=== PATIENT | female | born 2000 | race African-American/Black ===

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

== ENCOUNTER 2018-01-06 11:42 | Emergency (ER) | payer OTHER ==
[~2018-01-06 11:42] MED LIST changes: -CEPH-460 PO; +FAMO1TAB37 PO; -KETO2CRE TOPICAL; +TYLE325T PO
--- NOTE | 2018-01-06 12:17 | PD ---
HPI Chief Complaint sent in from Ob doctor's office due to cervical dilation change from 2 wks ago, from 1 to 3cm dilated Travel History International Travel<30 Days: No Contact w/Intl Traveler<30Days: No History of Present Illness HPI Patient is a 17-year-old female at 34/4 weeks gestation presenting from her OB doctor's office due to cervical dilation. Patient reports that she was checked by her OB practitioner I carefully woman and was told that she was dilated 3 cm compared to 2 weeks ago when she was 1 cm dilated. Patient states that she does not know reason patient did a cervical check. Denies loss of fluid, vaginal bleeding, or contractions. Endorses movement. Denies chest pain, shortness of breath, nausea, vomiting, abdominal pain, headaches or vision issues. Para: 0 : 1 History Past Medical History Medical History: Denies Significant Hx Obstetric History Obstetric History No complications this so far Past Surgical History Surgical History: No Previous Surgery Family History Family History: Negative Social History Alcohol Use: No Tobacco Use: No Substance Abuse: Yes (Marijuana, 1 blunt per week.) Allergies-Medications (Allergen,Severity, Reaction): Coded Allergies: No Known Allergies (Verified Adverse Reaction, Unknown, 12/27/17) Home Meds Active Scripts Acetaminophen (Tylenol) 325 Mg Tab, 650 MG PO Q6H Y for PAIN SCALE 1 TO 4, #20 TAB 0 Refills Prov:Charu Hopkins DO 12/27/17 Famotidine (Pepcid) 20 Mg Tab, 20 MG PO BID for 7 Days, #14 TAB 0 Refills Prov:Charu Hopkins DO 12/27/17 Review of Systems Except as stated in HPI: all other systems reviewed are Neg (per HPI) Physical Exam Narrative GENERAL: Well-nourished, well-developed patient. SKIN: Warm and dry. HEAD: Normocephalic and atraumatic. EYES: No scleral icterus. No injection or drainage. ENT: No nasal drainage noted. Mucous membranes pink. Airway patent. NECK: Supple, trachea midline. No JVD. CARDIOVASCULAR: Regular rate and rhythm without murmurs, gallops, or rubs. RESPIRATORY: Breath sounds equal bilaterally. No accessory muscle use. ABDOMEN/GI: Abdomen soft, non-tender, bowel sounds present, no rebound, no guarding Gravid to 34 weeks size GENITOURINARY: External Genitalia: intact and normal in appearance Cervix: posterior Dilatation:1 Effacement: 0 Station: -2 Membranes: intact Uterine Contractions: none FHT's: Category: 1 Baseline: 140 Reactive: yes Variability: moderate Decels: none EXTREMITIES: No cyanosis or edema. BACK: Nontender without obvious deformity. No CVA tenderness. NEUROLOGICAL: Awake and alert. Motor and sensory grossly within normal limits. Five out of 5 muscle strength in all muscle groups. Normal speech. Data Data Vital Signs Reviewed: Yes [facility] Medical Record Reviewed: Yes Plan Patient is a 17-year-old female at 34/4 weeks gestation presenting from her OB doctor's office due to cervical dilation. IUP at 34/4 1. category 1, NST reassuring 2. VS WNL 3. no contraction on monitor, pt not found to be in labor. 4. cervical check: 1/thick/-2/ posterior. 5. Patient will be discharge home, advised to f/u with OB doctor as schedule for care MARYW Dr. Stokes Diagnosis Diagnosis: Primary Impression: 34 weeks gestation of Disposition: DISCHARGE HOME Condition: Stable Frank Shaffer MD, R1 January 06, 2018 12:17
== END 2018-01-06 14:04 | disposition home or self-care (01) ==
LOC: HOBED 11:42
DX: O34.33 Maternal care for cervical incompetence, third trimester (principal); Z3A.34 34 weeks gestation of pregnancy
CPT/HCPCS: 59025

== ENCOUNTER 2018-01-28 05:06 | Inpatient (IN) | payer OTHER ==
[~2018-01-28] VITALS: Ht 177.8 cm; Wt 83.9 kg
[2018-01-28] VITALS (24 sets, daily range): BP systolic 129–152; BP diastolic 66–83; PULSE 67–119; RESP 16–20; TEMP 98.4–98.7; O2SAT 100
[2018-01-28] MEDS ORDERED: LACTATED RINGER'S 1000 ML INJ 1,000 ML IV SCH (05:57)
[2018-01-28] MEDS ORDERED: LACTATED RINGER'S 1000 ML INJ 1,000 ML IV PRN (05:57)
[2018-01-28] MEDS ORDERED: OXYTOCIN 30 UNITS-500ML PREMIX 500 ML IV ONE (06:00)
[2018-01-28] MEDS ORDERED: MINERAL OIL 10 ML VIAL TOPICAL PRN (06:00)
[2018-01-28] MEDS ORDERED: LIDOCAINE HCL 1% 50 ML VIAL INFIL PRN (06:00)
[2018-01-28] MEDS ORDERED: LIDOCAINE HCL 1% 50 ML VIAL I-DERMAL PRN (06:00)
[2018-01-28] MEDS ORDERED: CITRIC ACID-SODIUM CITRATE LIQ 30 ML UDC PO SCH (06:00)
[2018-01-28] MEDS ORDERED: SODIUM CHLORID 0.9% 500 ML INJ 500 ML IV PRN (06:00)
--- NOTE | 2018-01-28 06:04 | PD ---
HPI Chief Complaint contractions Date Seen: Jan 28, 2018 Time Seen: 06:03 Travel History International Travel<30 Days: No Contact w/Intl Traveler<30Days: No Known Affected Area: No History of Present Illness HPI Ms Bliss is a 17 YO female at 37/5 weeks (SHANTEL 02/13/18 with LMP 05/09/17) followed by [facility] with no PCP who presents with contractions about 10 minutes apart starting around 2-3AM. There is no VB or LOF. There is +FM. She is GBS negative and labs have been wnl with no gestational HTN or DM reported. When she was seen in clinic yesterday pelvic exam revealed cervical dilation to 4cm. Pt denies visual sxs, GUERRA, fever, N/V/D, constipation, CP, SOB, leg edema or pain. Weeks Gestation: 37 Para: 0 : 1 Last Menstrual Period: May 09, 2017 History Past Medical History Medical History: Denies Significant Hx Obstetric History Obstetric History LMP May 09 2017 OB US without abnormalities 02/13/18 Past Surgical History Surgical History: No Previous Surgery Family History Narrative Family History Mother and grandmother both have diabetes Social History Alcohol Use: No Tobacco Use: No Substance Abuse: Yes ([facility]) Allergies-Medications (Allergen,Severity, Reaction): Coded Allergies: No Known Allergies (Verified Adverse Reaction, Unknown, 12/27/17) Home Meds No Active Prescriptions or Reported Meds Review of Systems General / Constitutional: No: Fever, Chills Eyes: No: Blurred Vision, Visual changes HENT: No: Headaches, Lightheadedness Cardiovascular: No: Chest Pain or Discomfort, Palpitations Respiratory: No: Cough, Short of Breath Gastrointestinal: No: Nausea, Vomiting, Diarrhea, Abdominal Pain, Constipation Genitourinary: Pelvic Pain (contractions), No: Urgency, Frequency, Dysuria, Discharge, Vaginal Bleeding Musculoskeletal: Pain (contractions), No: Edema Skin: No Rash Neurologic: No: Dizziness, Headache Psychiatric: No: Depression Physical Exam T-98.4 / MHR 93-102 / BP 148/86 / RR 20 Narrative GENERAL: Well-nourished, well-developed patient with occasional pain with contractions. SKIN: Warm and dry. No lesions. HEAD: Normocephalic and atraumatic. EYES: No scleral icterus. No injection or drainage. ENT: No nasal drainage noted. Mucous membranes pink. Airway patent. NECK: Supple, trachea midline. No JVD. CARDIOVASCULAR: Tachycardia, regular rhythm without murmurs, gallops, or rubs. RESPIRATORY: Breath sounds equal bilaterally. No accessory muscle use. ABDOMEN/GI: Abdomen soft, non-tender, bowel sounds present, no rebound, no guarding Gravid to 38 weeks size GENITOURINARY: External Genitalia: intact and normal in appearance Cervix: open Dilatation: 5 Effacement: 80 Station: -3 Presentation: vtx Membranes: intact/bulging Uterine Contractions: q3-5minutes FHT's: Category: 1 Baseline: 140 Reactive: yes Variability: moderate Decels: absent EXTREMITIES: No cyanosis or edema. BACK: Nontender without obvious deformity. No CVA tenderness. NEUROLOGICAL: Awake and alert. Motor and sensory grossly within normal limits. Five out of 5 muscle strength in all muscle groups. Normal speech. Data Data Vital Signs Reviewed: Yes Orders Orders Ob (2e) Additional Admit Info (01/28/18 05:49) Admit To Inpatient (01/28/18 ) Code Status (01/28/18 05:57) Vital Signs (Adult) .Per protocol (01/28/18 05:57) Activity Oob Ad Tamara (01/28/18 05:57) Heart (01/28/18 05:57) Amnioinfusion (01/28/18 05:57) Urinary Catheter Management .ONCE (01/28/18 05:57) Diet Npo (01/28/18 Breakfast) Lactated Ringer's 1000 Ml Inj (Lr 1000 M (01/28/18 05:57) Lactated Ringer's 1000 Ml Inj (Lr 1000 M (01/28/18 05:57) Sodium Chlorid 0.9% 500 Ml Inj (Ns 500 M (01/28/18 06:00) Sodium Chlor 0.9% 1000 Ml Inj (Ns 1000 M (01/28/18 06:17) Lidocaine 1% Inj (50 Ml) (Xylocaine 1% I (01/28/18 06:00) Citric Acid-Sodium Citrate Liq (Bicitra (01/28/18 06:00) Fentanyl Inj (Fentanyl Inj) (01/28/18 06:00) Fentanyl Inj (Fentanyl Inj) (01/28/18 06:00) Complete Blood Count With Diff (01/28/18 05:57) Hold Clot (01/28/18 05:57) Abo/Rh Blood Type (01/28/18 05:57) Urinalysis - C+S If Indicated (01/28/18 05:57) Ob/Psych Drug Screen, Urine (01/28/18 05:57) Resp Oxygen Non Rebreathe Mask (01/28/18 ) ^ Epidural / Intrathecal Infus (01/28/18 05:57) Oxytocin 30 Units-500ml Premix (Pitocin (01/28/18 06:00) Lidocaine 1% Inj (50 Ml) (Xylocaine 1% I (01/28/18 06:00) Light Mineral Oil (Muri-Lube Oil) (01/28/18 06:00) Inpatient Certification (01/28/18 ) Specimen To Be Collected PRN (01/28/18 05:57) Specimen To Be Collected PRN (01/28/18 05:57) Group B Strep: Negative Labs Laboratory Tests Test 01/28/18 05:30 MDM Medical Record Reviewed: Yes Narrative Course / MDM 17YO at 37/5 weeks presents in labor with contractions q3-5 minutes. Cervix is 5/80/-3 with a bulging bag. There has been no VB and there is +FM. FHT is Cat 1, BL 140, reactive, moderate, no decels. Admitted for L&D. 1. IUP -Monitor and toco -Epidural at pt request -Consent signed -NPO with sips and chips -Labs: UDS, CBC, UA w/C+S -LR IVF @ 125mls/hr Pt dw Dr Alexander Scripts No Active Prescriptions or Reported Meds Tk Islas MD R1 Jan 28, 2018 06:04
[2018-01-28 06:17] LABS: BACTERIA, URINE RARE /hpf; BILIRUBIN, URINE NEG (NEG); BLOOD, URINE LARGE (NEG); GLUCOSE,URINE NEG (NEG); KETONE, URINE NEG (NEG); MUCUS URINE FEW /lpf (OCC); NITRITE,URINE NEG (NEG); SQUAMOUS EPITHELIAL CELL URINE 4 /hpf (0-5); URINE COLOR Straw (YELLW/STRAW); URINE LEUKOCYTE ESTERASE LARGE (NEG)
[2018-01-28] MEDS ORDERED: SODIUM CHLOR 0.9% 1000 ML INJ 1,000 ML IV PRN (06:17)
--- NOTE | 2018-01-28 06:32 | HHI.HP ---
History & Physical H&P HPI Chief Complaint contractions Date Seen: Jan 28, 2018 Time Seen: 06:03 Travel History International Travel<30 Days: No Contact w/Intl Traveler<30Days: No Known Affected Area: No History of Present Illness HPI Ms Bliss is a 17 YO female at 37/5 weeks (SHANTEL 02/13/18 with LMP 05/09/17) followed by [facility] with no PCP who presents with contractions about 10 minutes apart starting around 2-3AM. There is no VB or LOF. There is +FM. She is GBS negative and labs have been wnl with no gestational HTN or DM reported. When she was seen in clinic yesterday pelvic exam revealed cervical dilation to 4cm. Pt denies visual sxs, GUERRA, fever, N/V/D, constipation, CP, SOB, leg edema or pain. Weeks Gestation: 37 Para: 0 : 1 Last Menstrual Period: May 09, 2017 History (Limited) History Past Medical History Medical History: Denies Significant Hx Obstetric History Obstetric History LMP May 09 2017 OB US without abnormalities 02/13/18 Past Surgical History Surgical History: No Previous Surgery Family History Narrative Family History Mother and grandmother both have diabetes Social History Alcohol Use: No Tobacco Use: No Substance Abuse: Yes ([facility]) Allergies-Medications Allergies-Medications (Allergen,Severity, Reaction): Coded Allergies: No Known Allergies (Verified Adverse Reaction, Unknown, 12/27/17) Home Meds No Active Prescriptions or Reported Meds ROS Review of Systems General / Constitutional: No: Fever, Chills Eyes: No: Blurred Vision, Visual changes HENT: No: Headaches, Lightheadedness Cardiovascular: No: Chest Pain or Discomfort, Palpitations Respiratory: No: Cough, Short of Breath Gastrointestinal: No: Nausea, Vomiting, Diarrhea, Abdominal Pain, Constipation Genitourinary: Pelvic Pain (contractions), No: Urgency, Frequency, Dysuria, Discharge, Vaginal Bleeding Musculoskeletal: Pain (contractions), No: Edema Skin: No Rash Neurologic: No: Dizziness, Headache Psychiatric: No: Depression Physical Exam Physical Exam T-98.4 / MHR 93-102 / BP 148/86 / RR 20 Narrative GENERAL: Well-nourished, well-developed patient with occasional pain with contractions. SKIN: Warm and dry. No lesions. HEAD: Normocephalic and atraumatic. EYES: No scleral icterus. No injection or drainage. ENT: No nasal drainage noted. Mucous membranes pink. Airway patent. NECK: Supple, trachea midline. No JVD. CARDIOVASCULAR: Tachycardia, regular rhythm without murmurs, gallops, or rubs. RESPIRATORY: Breath sounds equal bilaterally. No accessory muscle use. ABDOMEN/GI: Abdomen soft, non-tender, bowel sounds present, no rebound, no guarding Gravid to 38 weeks size GENITOURINARY: External Genitalia: intact and normal in appearance Cervix: open Dilatation: 5 Effacement: 80 Station: -3 Presentation: vtx Membranes: intact/bulging Uterine Contractions: q3-5minutes FHT's: Category: 1 Baseline: 140 Reactive: yes Variability: moderate Decels: absent EXTREMITIES: No cyanosis or edema. BACK: Nontender without obvious deformity. No CVA tenderness. NEUROLOGICAL: Awake and alert. Motor and sensory grossly within normal limits. Five out of 5 muscle strength in all muscle groups. Normal speech. Data Data Data Vital Signs Reviewed: Yes Orders Orders Ob (2e) Additional Admit Info (01/28/18 05:49) Admit To Inpatient (01/28/18 ) Code Status (01/28/18 05:57) Vital Signs (Adult) .Per protocol (01/28/18 05:57) Activity Oob Ad Tamara (01/28/18 05:57) Heart (01/28/18 05:57) Amnioinfusion (01/28/18 05:57) Urinary Catheter Management .ONCE (01/28/18 05:57) Diet Npo (01/28/18 Breakfast) Lactated Ringer's 1000 Ml Inj (Lr 1000 M (01/28/18 05:57) Lactated Ringer's 1000 Ml Inj (Lr 1000 M (01/28/18 05:57) Sodium Chlorid 0.9% 500 Ml Inj (Ns 500 M (01/28/18 06:00) Sodium Chlor 0.9% 1000 Ml Inj (Ns 1000 M (01/28/18 06:17) Lidocaine 1% Inj (50 Ml) (Xylocaine 1% I (01/28/18 06:00) Citric Acid-Sodium Citrate Liq (Bicitra (01/28/18 06:00) Fentanyl Inj (Fentanyl Inj) (01/28/18 06:00) Fentanyl Inj (Fentanyl Inj) (01/28/18 06:00) Complete Blood Count With Diff (01/28/18 05:57) Hold Clot (01/28/18 05:57) Abo/Rh Blood Type (01/28/18 05:57) Urinalysis - C+S If Indicated (01/28/18 05:57) Ob/Psych Drug Screen, Urine (01/28/18 05:57) Resp Oxygen Non Rebreathe Mask (01/28/18 ) ^ Epidural / Intrathecal Infus (01/28/18 05:57) Oxytocin 30 Units-500ml Premix (Pitocin (01/28/18 06:00) Lidocaine 1% Inj (50 Ml) (Xylocaine 1% I (01/28/18 06:00) Light Mineral Oil (Muri-Lube Oil) (01/28/18 06:00) Inpatient Certification (01/28/18 ) Specimen To Be Collected PRN (01/28/18 05:57) Specimen To Be Collected PRN (01/28/18 05:57) Group B Strep: Negative Labs Laboratory Tests Test 01/28/18 05:30 MDM MDM Medical Record Reviewed: Yes Narrative Course / MDM 17YO at 37/5 weeks presents in labor with contractions q3-5 minutes. Cervix is 5/80/-3 with a bulging bag. There has been no VB and there is +FM. FHT is Cat 1, BL 140, reactive, moderate, no decels. Admitted for L&D. 1. IUP -Monitor and toco -Epidural at pt request -Consent signed -NPO with sips and chips -Labs: UDS, CBC, UA w/C+S -LR IVF @ 125mls/hr Pt dw Dr Benjamin Islas,Tk Ortiz MD R1 Jan 28, 2018 06:32
[2018-01-28] MEDS ORDERED: LIDOCAINE HCL 1% PF 30 ML VIAL ONE (07:19)
--- NOTE | 2018-01-28 07:44 | PD.OB.DELI ---
Weeks gestation: 37 Pt started active labor?: Yes Active labor start date: Jan 28, 2018 Active labor start time: 06:00 Medical induction of labor?: No Artificial rupture of membrane: Yes Artificial ROM date: Jan 28, 2018 Artifical ROM time: 07:25 Anesthesia: None Episiotomy: None Vaginal Delivery: Normal Presentation: Occiput anterior Nuchal Cord: None Delayed cord clamping (45 sec): Yes Infant: Female Delivery date: Jan 28, 2018 Delivery time: 07:34 One Minute : 8 Five Minute : 9 Weight: 3375 Placenta: Spontaneous delivery (Placenta delivered intact with a large clot at the periphery indicating a marginal abruption), Intact, 3 vessel cord Laceration: No lacerations Estimated blood loss: 100 mL Additional Information Head delivered by maternal effort. No nuchal cord appreciated and the anterior shoulder delivered without complications. Delayed cord clamping and baby was placed on mother's chest. Placenta was delivered without complications, but large size clot was appreciated on the periphery of the placenta indicating a moderate abruption. No lacerations appreciated. Marcos Purcell MD R1 Jan 28, 2018 07:44
[2018-01-28] MEDS ORDERED: ALUMINUM/MAGNESIUM/SIMETH 30 ML CUP PO PRN (07:45)
[2018-01-28] MEDS ORDERED: WITCH HAZEL 50%/GLYCERIN 12.5% 40 PAD JAR TOPICAL PRN (07:45)
[2018-01-28] MEDS ORDERED: ZOLPIDEM TARTRATE 5 MG TAB PO PRN (07:45)
[2018-01-28] MEDS ORDERED: IBUPROFEN 800 MG TAB PO PRN (07:45)
[2018-01-28] MEDS ORDERED: SODIUM CHLORIDE 0.9% FLUSH 10 ML FLUSH IV FLUSH PRN (07:45)
[2018-01-28] MEDS ORDERED: BENZOCAINE 20% TOPICAL SPRAY 60 ML CAN TOPICAL PRN (07:45)
[2018-01-28] MEDS ORDERED: ONDANSETRON ODT 4 MG TAB PO PRN (07:45)
[2018-01-28] MEDS ORDERED: OXYTOCIN 30 UNITS-500ML PREMIX 500 ML IV SCH (07:45)
[2018-01-28] MEDS ORDERED: DOCUSATE SODIUM 50 MG/SENNA 8.6 MG TAB PO PRN (07:45)
[2018-01-28 08:16] LABS: AUTOMATED NEUTROPHIL # 9.7 TH/MM3 (1.8-7.7); BASOPHIL % 0.2 % (0.0-2.0); EOSINOPHIL # 0.1 TH/MM3 (0-0.4); EOSINOPHIL % 0.6 % (0.0-4.0); HEMATOCRIT 30.9 % (35.0-46.0); HEMOGLOBIN 10.8 GM/DL (11.6-15.3); LYMPH % 13.3 % (9.0-44.0); LYMPHOCYTE # 1.6 TH/MM3 (1.0-4.8); MEAN CELL VOLUME 86.5 FL (80.0-100.0); MEAN CORPUSCULAR HEMOGLOBIN 30.1 PG (27.0-34.0); MEAN CORPUSCULAR HGB CONC 34.9 % (32.0-36.0); MEAN PLATELET VOLUME 8.4 FL (7.0-11.0); MONO % 6.6 % (0.0-8.0); MONOCYTE # 0.8 TH/MM3 (0-0.9); NEUT % 79.3 % (16.0-70.0); PLATELET COUNT 220 TH/MM3 (150-450); RED BLOOD COUNT 3.58 MIL/MM3 (4.00-5.30); RED CELL DISTRIBUTION WIDTH 13.1 % (11.6-17.2); WHITE BLOOD COUNT 12.2 TH/MM3 (4.0-11.0)
[2018-01-28] MEDS ORDERED: SODIUM CHLORIDE 0.9% FLUSH 10 ML FLUSH IV FLUSH SCH (09:00)
[2018-01-28 09:18] LABS: LYMPHOCYTES 11 % (9-44); MONOCYTES 7 % (0-8); MYELOCYTES 1 % (0-0); POLYS (SEG NEUTROPHILS) 81 % (16-70); TOXIC VACUOLATION PRESENT (NONE SEEN)
[2018-01-28] MEDS ORDERED: MEASLES, MUMPS, RUBELLA VACCINE 0.5 ML VIAL SQ ONE (16:00)
[2018-01-28] MEDS ORDERED: DIPHTH/TETANUS/ACEL PERTUSSIS (BOOSTER) 0.5 ML VIAL/PFS IM ONE (16:00)
[2018-01-28] MEDS: ACETAMINOPHEN 325 MG TAB PO PRN (20:09)
[2018-01-29] MEDS: ACETAMINOPHEN 325 MG TAB PO PRN (06:10)
--- NOTE | 2018-01-29 09:33 | HHI.OB ---
Subjective Post Day: 1 Remarks Patient is a 17-year-old delivered at 37 weeks and 5 days. Patient is day 1 after . Patient's pain is well-controlled. Patient reports eating and drinking without any nausea or vomiting. Patient reports minimal bleeding. Patient has passed gas but no bowel movements. Patient is walking without lower extremity pain or shortness of breath. Patient reports desire for contraception with oral contraceptive pill and both formula and breast-feeding. Objective Vitals/I&O Vital Signs Date Time Temp Pulse Resp B/P (MAP) Pulse Ox O2 Delivery O2 Flow Rate FiO2 01/28/18 20:00 98.4 01/28/18 20:00 78 18 136/81 (99) 01/28/18 09:50 98.7 67 20 129/78 (95) 100 Objective Remarks GENERAL: Well-nourished, well-developed patient. CARDIOVASCULAR: Regular rate and rhythm without murmurs, gallops, or rubs. RESPIRATORY: Breath sounds equal bilaterally. No accessory muscle use. ABDOMEN/GI: Abdomen soft, non-tender. Fundus: Firm, non-tender at umbilicus. GENITOURINARY: Light to moderate bleeding. EXTREMITIES: No cyanosis or edema, non-tender, without signs of DVT. Medications and IVs Current Medications Medications (Trade) Dose Ordered Sig/Emilia Route Start Time Stop Time Status Last Admin (NS Flush) 2 ml BID IV FLUSH 01/28/18 09:00 01/28/18 20:09 (NS Flush) 2 ml UNSCH PRN IV FLUSH 01/28/18 07:45 (Tylenol) 650 mg Q4H PRN PO 01/28/18 07:45 01/29/18 06:10 (Motrin) 800 mg Q8H PRN PO 01/28/18 07:45 01/28/18 16:12 (Americaine 20% Top Spr) 1 spray Q4H PRN TOPICAL 01/28/18 07:45 (Tucks Pads) 1 applic QID PRN TOPICAL 01/28/18 07:45 (Sophie-Colace) 2 tab Q12H PRN PO 01/28/18 07:45 01/28/18 20:09 (Ambien) 5 mg HS PRN PO 01/28/18 07:45 (Mag-Al Plus Susp Liq) 15 ml Q8H PRN PO 01/28/18 07:45 (Zofran Odt) 4 mg Q6H PRN PO 01/28/18 07:45 Assessment/Plan Problem List: (1) (spontaneous vaginal delivery) ICD Codes: O80 - Encounter for full-term uncomplicated delivery Assessment and Plan Patient is a 17-year-old delivered at 37 weeks and 5 days. Patient is day 1 after . Patient was counseled to do 6 weeks of pelvic rest. Patient was counseled to follow up in 6 weeks. Patient requested follow-up and contraception. --AF VSS --Continue routine care --Motrin and Percocet when necessary for pain --Encourage OOB --Pelvic rest for 6 weeks will need follow-up appointment at that time. --Contraception: Ortho [facility] --Anticipate discharge today or tomorrow d/w Dr. Ashwin Esteban,Adan Lucero MD R2 Jan 29, 2018 09:33
[2018-01-29] MEDS ORDERED: IBUP1TAB7 PO (10:14)
--- NOTE | 2018-01-29 10:15 | HHI.DCPOC ---
Discharge Care Plan Diagnosis: (1) (spontaneous vaginal delivery) Report Symptoms to Your Doctor -Temperature above 100.5 degrees -Redness, of incision or excessive or foul smelling drainage -Unusual pain or calf pain -Increased vaginal bleeding -Painful or difficulty urinating -Feelings of extreme sadness or anxiety after 2 weeks Goals to Promote Your Health * To prevent worsening of your condition and complications, please follow-up with your doctor. Directions to Meet Your Goals Take your medications as prescribed Follow your dietary instruction Follow activity as directed Ensure plenty of rest for recovery Drink fluids for hydration Keep your appointments as scheduled Take your immunizations and boosters as scheduled If your symptoms worsen call your PCP, if no PCP go to Urgent Care Center or Emergency Room Smoking is Dangerous to Your Health. Avoid second hand smoke Call the 24-hour crisis hotline for domestic abuse at Adan Esteban MD R2 Jan 29, 2018 10:15
[2018-01-29] MEDS ORDERED: ORTH0.35 PO (13:00)
== END 2018-01-29 13:10 | disposition home or self-care (01) | DRG 774 ==
LOC: HOBED 05:06 → H2EA 05:49 → H1EA 09:30
PROVIDERS: ADMIT Obstetrics & Gynecology Maternal & Fetal Medicine; ATTEND Obstetrics & Gynecology Maternal & Fetal Medicine
PROC: 10E0XZZ Delivery of Products of Conception, External Approach (ICD-10-PCS; principal; 2018-01-28)
DX: O45.93 Premature separation of placenta, unspecified, third trimester (principal); Z3A.37 37 weeks gestation of pregnancy; Z37.0 Single live birth; Z83.3 Family history of diabetes mellitus
CPT/HCPCS: 59025; 80307; 81001; 85007; 85027; 86900; 86901; 87086; G0481; J7120